=== PATIENT | female | born 1995 | race Caucasian/White ===

== ENCOUNTER 2022-07-26 09:59 | Emergency (ER) | payer OTHER ==
--- NOTE | 2022-07-26 10:29 | XRAY Report ---
PROCEDURE: Foot 3 View RT INDICATIONS: Trauma TECHNIQUE: 3 views of the foot were acquired. COMPARISON: None FINDINGS: Bones: No fractures or dislocations. No suspicious bony lesions. Soft tissues: No tibiotalar joint effusion. Achilles tendon appears normal. IMPRESSION: Normal right foot Reviewed by: Galen Todd on 07/26/2022 10:[address] [facility] Approved by: Galen Todd on 07/26/2022 10:[address] [facility] Station ID: [id number]
--- NOTE | 2022-07-26 12:05 | ED Physician Documentation ---
PD HPI LOWER EXT INJURY - Stated complaint Stated Complaint: R FOOT INJ - Chief complaint Chief Complaint: Trauma Ext - History obtained from History obtained from: Patient - History of Present Illness PD HPI LOW EXT INJURY LOCATION: Right (dropped dumbbell on R foot yesterday. Pain near distal 1st MT. Ibuprofen v helpful.) Review of Systems Constitutional: reports: Reviewed and negative Cardiac: reports: Reviewed and negative Respiratory: reports: Reviewed and negative PD PAST MEDICAL HISTORY - Allergies Allergies/Adverse Reactions: Allergies Allergy/AdvReac Type Severity Reaction Status Date / Time No Known Drug Allergies Allergy Verified 07/26/22 10:10 PD ED PE NORMAL - Vitals Vital signs reviewed: Yes - General General: Alert and oriented X 3, No acute distress - Extremities Extremities: Other (TTP and ecchymotic near distal dorsal R first MT.) - Neuro Neuro: Alert and oriented X 3, Normal speech Results - Vitals Vitals: Vital Signs - 24 hr 07/26/22 10:08 Temperature 36.7 C Heart Rate 61 Respiratory 16 Rate Blood Pressure 127/73 O2 Saturation 100 Oxygen O2 Source Room air Departure - Departure Disposition: 01 Home, Self Care Clinical Impression: Crushing injury of right foot Qualifiers: Encounter type: initial encounter Qualified Code(s): S97.81XA - Crushing injury of right foot, initial encounter Condition: Good Record reviewed to determine appropriate education?: Yes Instructions: ED Crush Injury Toe No Fx Comments: Ibuprofen as needed for pain. Return if worse. Recheck with your doctor in 1 week if not better.
[2022-07-26 12:09] VITALS: BP 128/74
== END 2022-07-26 12:17 | disposition home or self-care (01) ==
LOC: ED 09:59
DX: S97.81XA Crushing injury of right foot, initial encounter (principal); W20.8XXA Other cause of strike by thrown, projected or falling object, initial encounter
CPT/HCPCS: 99282; 99283